=== PATIENT | female | born 1970 | race Hispanic/Latino ===

== ENCOUNTER 2018-03-21 14:47 | Emergency (ER) | payer OTHER ==
[~2018-03-21] VITALS: Ht 167.6 cm; Wt 95.2 kg
[2018-03-21] MEDS ORDERED: NAPROXEN375 MG PO (15:13)
[2018-03-21] MEDS ORDERED: ORTHO-NOVUM1 EAC1 PO (17:21)
[2018-03-21] MEDS ORDERED: NAPROXEN500 MG PO (17:21)
== END 2018-03-21 18:00 | disposition home or self-care (01) ==
LOC: ED 14:47
DX: N92.1 Excessive and frequent menstruation with irregular cycle (principal); N94.6 Dysmenorrhea, unspecified; R51 Headache
CPT/HCPCS: 85027; 96361; 96374; 96375; 99283; J0780; J1200; J1885; J7120